=== PATIENT | female | born 1965 | race Caucasian/White ===

== ENCOUNTER → 2024-06-06 16:01 | Outpatient (REF) | payer OTHER, SELFPAY | LOC: HWRAD 16:01 | PROVIDERS: ATTENDING PHYSICIAN Anesthesiology Pain Medicine; FAMILY PHYSICIAN Family Medicine | DX: M54.50 Low back pain, unspecified (principal) | CPT/HCPCS: 72110 ==

== ENCOUNTER → 2024-07-09 14:44 | Outpatient (REF) | payer OTHER, SELFPAY | LOC: EMG 14:44 | PROVIDERS: ATTENDING PHYSICIAN Physical Medicine & Rehabilitation; FAMILY PHYSICIAN Family Medicine | DX: R20.0 Anesthesia of skin (principal); M54.16 Radiculopathy, lumbar region | CPT/HCPCS: 95886; 95911 ==

== ENCOUNTER → 2024-10-04 16:05 | Outpatient (REF) | payer OTHER, SELFPAY | LOC: HWWDC 16:05 | PROVIDERS: ATTENDING PHYSICIAN Family Medicine | DX: Z12.31 Encounter for screening mammogram for malignant neoplasm of breast (principal) | CPT/HCPCS: 77063; 77067 ==

== ENCOUNTER → 2024-10-29 08:27 | Outpatient (REF) | payer OTHER, SELFPAY ==
--- NOTE | 2024-10-23 07:55 | PN.DIAED02 ---
Referral
DSME Class Series Code: [id number]
Referred For: Diabetes Self-Management Training, Medical Nutrition Therapy, Self-Blood Glucose Monitoring, Long-Term Complication Instruction, Accute Complication Instruction, Continuous Glucose Monitoring, Medication management, Care Coordination,
Disease Management
PHI Release Authorization Form Signed: Yes
Patient Problems:
Current Active Problems
Problem Status Onset
Type 2 diabetes mellitus without complications
Demographic
(1) Type 2 diabetes mellitus without complications
Status: Chronic Code(s): E11.9 - Type 2 diabetes mellitus without complications
Patient's primary language-: Bruneian
Education: Some college
Occupation: Professional
Hours Worked/Week: 20-40
Shift: Day
- Social
Primary Support Person: Self
Primary Care Takers: Self
Living Arrangements: Self & spouse, Family
- Learning Methods
Preferred Method: Reading, Lecture/audio, Hands-on demonstration
Barriers to Learning: None
Glycemic Control
- Blood Glucose Monitoring Assessment
Date: 09/12/24 (134 FASTING)
Monitor Brands: Other ([employer])
Frequency: occasionally
- Hyperglycemia Assessment
Experiences Hyperglycemia: Yes (NEUROPATHY)
Frequency: 7 or more times per week
Time: Other (VARIABLE TIMES)
- Hypoglycemia Assessment
Patient experiences hypoglycemia: No
- Blood Glucose Monitoring Results
Source: self-report (134 FASTING AM)
- Hemoglobin A1c
Date: 09/11/24
A1C Percentage (%): 6.3
Medical History of Diabetes
Family Diabetes History: Mother
How long ago?: 1-5 years ago (PRE DIABETES EDUCATION)
Previous visit with Dietitian: Yes
How long ago?: 1-5 years ago (PRE DIABETES PROGRAM)
Complications/Comorbidity/Specialist: Hypertension (VALSARTAN HCTZ 320/25 MG QD), Hyperlipidemia (ATORVASTATIN 10 MG QD, FISH OIL ONCE TABLET QD ), Metabolic (DM2: GLIPIZIDE 5 MG QD), Neuropathy (NO MEDS)
Measures
- Anthropometrics
Height: 5 ft 4 in
Actual Weight: 228 lb 9.6 oz
- Blood Pressure / Pulse
Blood pressure: 147/87
Pulse: 95
- Diabetes Management
Medical Management for Diabetes: Complete physical exam (04/11/2024), Dental exam (03/28/2024), Dilated eye exam (pending)
Self-Care
- Tobacco Usage
Do you now, or have you ever smoked?: Never smoked
- Alcohol & Drugs Usage
Amount/day: Social Occasions (10 X/YEAR)
- Meals & Dining
Meals & Dining: Patient skips meals: No, Food Intolerance / Allergy: No, Cultural / Nondenominational Dietary Needs: No
Primary Food Oak Tanner: Self
Primary Paper Wrapping Machine Operator: Self
Dining Out Frequency: 1-3x per week
- Physical Activity
Physical Limitation: No
Patient participates in physical Activity: No
- Self Foot-Care
Foot Problems: Neuropathy (NO MEDS)
Performs Self Foot-Exam: No
- Patient-Self Assessment
Diabetes Knowledge: Fair
Feelings About Diabetes: Overwhelmed / Confused
General Health: Good
Importance of Health: Extremely
Diabetes Interferes With:: Nothing
Barriers to Diabetes Management: Nothing
Depression Survey Score: 0
- Diabetes Identification
Carries Diabetes Identification: No
Diabetes Identification Information Provided: Yes
Care Plan
- Education Needs
Patient Education Needs: Diabetes disease process, Chronic complications, Acute complications, Medication, Monitoring, Physical activity, Psychosocial Adjustment, Goal setting & problem solving, Preconception care//gestational diabetes
management
Recommended Diabetes Training Program based on assessment: Outpatient Diabetes Education Program
- Plan of Care
Plan of Care:
10/22/2024 INITIAL DSME MEETING
Patient diagnosed with T2D 8 months ago, has improved her A1c to 6.3% on Glipizide. I educated her to take Glipizide 30 minutes prior to first meal as this stimulates insulin release. Never take without eating unless otherwise directed by MD, can
cause hypoglycemia. She also takes Acidopholus supplements QD, 5000 IU Vitamin D and Vitamin K QD.
She has a [employer] glucometer, test strips and lancets but does not check her glucose levels regularly. Her preprandial glucose #'s have been 124, 131, 134. Admits to needing additional support with managing of T2D, gets discouraged at her
glucose levels. Verbally reviewed proper use of glucometer, she verbalized understanding.
Educated on pathophysiology of T2D vs. T1D. I provided education on meaning of HbA1c, signs and symptoms of hypoglycemia and hyperglycemia, hypoglycemia protocal, diabetes complications, and BS goals. I educated on importance of proper foot
care, jose. with her neuropathy, and eye exams.
Recommended she SMGB once daily for 1-2 weeks, including preprandial AM and 2 hours post prandial with different meals and also documenting meal choices. Suggested she review with diabetes team and PCP in the future.
Written material provided. Asked patient to contact health insurer to discuss coverage and fees for DMSE class accredited by ADA, she verbalized understanding and states that per her insurance it is covered. Encouraged her to contact office before
class with any concerns.
--- NOTE | 2024-10-23 08:27 | PN.DIAED04 ---
Education Record
- Education Record
Class Attended: Other (DSME INITIAL MEETING)
Instructor: Nurse Practitioner (IZA Lyle)
Pre-Program Knowledge: Needs review / Assistance
Pre-Test Score (%): 76
Goals
- Goal 1
Being Active: Exercise 30 minutes-5 times per week
Goals To Be Evaluated: Exercise 30 mins-5x/week
- Goal 2
Healthy Eating: Follow meal plan
Goals To Be Evaluated: Follow meal plan
- Goal 3
Monitoring: Monitor more often (ONLY CHECKS OCCASIONALLY)
Goals To Be Evaluated: Monitor more often
--- NOTE | 2024-10-30 09:54 | PN.DIAED04 ---
Education Record
- Education Record
Class Attended: Class 1
DSME Class Series Code: [id number]
Instructor: Registered Nurse (Mireya Lemon RN)
Class Curriculum:
Outpatient Diabetes Education Program:
Class 1 (120 minutes)
Describe the diabetes disease process and treatment options
Diabetes management
Develop personal strategies to promote health and behavior change
Integrate psychosocial adjustment for daily living
Monitor blood glucose and other parameters. Interpret and use the results for self-management decision making
Prevent, detect, and treat acute complications
Class Length (mins): 120
Post-Class 1 Test Score (%): 100
--- NOTE | 2024-10-30 09:55 | PN.DIAED14 ---
This is to notify you that your patient with diabetes, EVANS CHIU ( 1965), has enrolled in our diabetes self-management classes that are being held at [facility].
These classes will include an introduction to diabetes, diet, medication, exercise and prevention of complications. At the end of our class series, you will receive a report of your patient's participation and progress for your records.
Please contact me at the Diabetes Center, , if there is any particular information regarding your patient that might be helpful to me.
Sincerely,
Hung COUCH-DELFINO,[facility]
--- NOTE | 2024-11-01 09:16 | PN.DIAED06 ---
Meal Plans - Regular
- Meal Plan
Diabetic Meal Plan Name: 1500 calories
Breakfast - Total Carbohydrate (grams): 45
Breakfast - Starch Carbohydrate: 0
Breakfast - Fruit Carbohydrate: 0
Breakfast - Milk Carbohydrate: 0
Breakfast - Nonstarchy Vegetables: Yes
Breakfast - Meat/Protein: 1
Breakfast - Fat: 2
Morning Snack - Total Carbohydrate (grams): 15
Morning Snack - Starch Carbohydrate: 0
Morning Snack - Fruit Carbohydrate: 0
Morning Snack - Milk Carbohydrate: 0
Morning Snack - Nonstarchy Vegetables: Yes
Morning Snack - Meat/Protein: 0.5
Morning Snack - Fat: 0
Lunch - Total Carbohydrate (grams): 30
Lunch - Starch Carbohydrate: 0
Lunch - Fruit Carbohydrate: 0
Lunch - Milk Carbohydrate: 0
Lunch - Nonstarchy Vegetables: Yes
Lunch - Meat/Protein: 2
Lunch - Fat: 1
Afternoon Snack - Total Carbohydrate (grams): 15
Afternoon Snack - Starch Carbohydrate: 0
Afternoon Snack - Fruit Carbohydrate: 0
Afternoon Snack - Milk Carbohydrate: 0
Afternoon Snack - Nonstarchy Vegetables: Yes
Afternoon Snack - Meat/Protein: 0.5
Afternoon Snack - Fat: 0
Dinner - Total Carbohydrate (grams): 30
Dinner - Starch Carbohydrate: 0
Dinner - Fruit Carbohydrate: 0
Dinner - Milk Carbohydrate: 0
Dinner - Nonstarchy Vegetables: Yes
Dinner - Meat/Protein: 2
Dinner - Fat: 1
Evening Snack - Total Carbohydrate (grams): 15
Evening Snack - Starch Carbohydrate: 0
Evening Snack - Fruit Carbohydrate: 0
Evening Snack - Milk Carbohydrate: 0
Evening Snack - Nonstarchy Vegetables: Yes
Evening Snack - Meat/Protein: 0
Evening Snack - Fat: 0
== END ==
LOC: DES 08:27
PROVIDERS: ATTENDING PHYSICIAN Family Medicine
DX: E11.9 Type 2 diabetes mellitus without complications (principal)
CPT/HCPCS: 99078

== ENCOUNTER → 2024-11-05 08:26 | Outpatient (REF) | payer OTHER, SELFPAY ==
--- NOTE | 2024-11-06 09:55 | PN.DIAED04 ---
Education Record
- Education Record
Class Attended: Class 2
DSME Class Series Code: [id number]
Instructor: Registered Dietitian (Jacquie Mann, RD, LDN, CDE)
Class Curriculum:
Outpatient Diabetes Education Program:
Class 2 (120 minutes)
Incorporate nutritional management into lifestyle
Understanding nutritional value
Understanding carbohydrate counting
Class Length (mins): 120
== END ==
LOC: DES 08:26
PROVIDERS: ATTENDING PHYSICIAN Family Medicine
DX: E11.9 Type 2 diabetes mellitus without complications (principal)
CPT/HCPCS: 99078

== ENCOUNTER → 2024-11-12 08:06 | Outpatient (REF) | payer OTHER, SELFPAY | LOC: DES 08:06 | PROVIDERS: ATTENDING PHYSICIAN Family Medicine | DX: E11.9 Type 2 diabetes mellitus without complications (principal) | CPT/HCPCS: 99078 ==

== ENCOUNTER → 2024-11-19 10:47 | Outpatient (REF) | payer OTHER, SELFPAY | LOC: DES 10:47 | PROVIDERS: ATTENDING PHYSICIAN Family Medicine | DX: E11.9 Type 2 diabetes mellitus without complications (principal) | CPT/HCPCS: 99078 ==

== ENCOUNTER → 2025-06-28 14:08 | Outpatient (REF) | payer OTHER, SELFPAY | LOC: HWRAD 14:08 | PROVIDERS: ATTENDING PHYSICIAN Family Medicine | DX: M85.80 Other specified disorders of bone density and structure, unspecified site (principal) | CPT/HCPCS: 77080 ==